=== PATIENT | female | born 1970 | race Caucasian/White ===

== ENCOUNTER → 2017-04-23 | Outpatient (CLI) | payer BC ==
--- NOTE | 2017-04-24 11:53 | MM ---
Reason for exam: screening (asymptomatic). Last mammogram was performed 1 year and 1 month ago. History: Took hormonal contraceptives for 10 years. Physical Findings: A clinical breast exam by your physician is recommended on an annual basis and results should be correlated with mammographic findings. MG Screening Mammo w CAD Bilateral CC and MLO view(s) were taken. Prior study comparison: March 19, 2016, bilateral MG 3d screening mammo w/cad. December 22, 2014, bilateral MG screening mammo w CAD. The breast tissue is heterogeneously dense. This may lower the sensitivity of mammography. There is no discrete abnormality. ASSESSMENT: Negative, BI-RAD 1 RECOMMENDATION: Routine screening mammogram of both breasts in 1 year.
== END | disposition home or self-care (01) ==
LOC: RADMAMWWP 07:23
PROVIDERS: ATTEND Obstetrics & Gynecology
DX: Z12.31 Encounter for screening mammogram for malignant neoplasm of breast (principal)

== ENCOUNTER → 2017-05-01 | Outpatient (CLI) | payer BC ==
--- NOTE | 2017-05-01 14:08 | USB ---
Reason for exam: clinical finding. History: Took hormonal contraceptives for 10 years. Indicated problem(s): pain in the left breast. Physical Findings: Nurse Summary: patient has pain that radiates to 2 o'clock on breast, no lump palpated, bilateral soft/movable (nurse cw). US Breast LT Left breast ultrasound includes all four quadrants, the retroareolar region and axilla. Finding demonstrates a 0.4 x 0.6 x 0.3cm oval, hyperechoic lesion at 7 o'clock, lipoma versus dense tissue. These results were verbally communicated with the patient and result sheet given to the patient on 05/01/17. ASSESSMENT: Benign, BI-RAD 2 RECOMMENDATION: Return to routine screening mammogram schedule for both breasts. Manage patient on a clinical basis.
== END | disposition home or self-care (01) ==
LOC: RADUSWWP 13:00
PROVIDERS: ATTEND Family Medicine
DX: N64.4 Mastodynia (principal)

== ENCOUNTER → 2017-09-28 | Outpatient (CLI) | payer BC ==
[2017-09-28 17:35] LABS: T4, Free (Free Thyroxine) 0.97 ng/dL (0.78-2.19)
== END | disposition home or self-care (01) ==
LOC: LABWHC1 16:36
PROVIDERS: ATTEND Family Medicine
DX: L65.9 Nonscarring hair loss, unspecified (principal); R53.83 Other fatigue
CPT/HCPCS: 36415; 82306; 84439; 84443; 84481

== ENCOUNTER → 2017-11-04 | Outpatient (CLI) | payer BC ==
--- NOTE | 2017-11-04 14:35 | CONS ---
CONSULTATION DATE OF SERVICE: 11/04/2017 47-year-old lady has been evaluated in Sleep Center for significant excessive daytime sleepiness. [place] Sleepiness Scale increased to 20. HISTORY OF PRESENT ILLNESS SLEEP WAKE EVALUATION: Patient referred to be a long sleeper for all her life. SLEEP SCHEDULE: At the present time, she sleeps usually from around 10:00 p.m. until 6 am at night. 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 DURING SLEEP: She does not have history of snoring. During the night, she constantly move from 1 side to another site. She preferred to sleep on the side not on the back. According to her , she is rubbing her feet during the night. No history of nocturia. DURING THE DAY/SLEEP WAKE EVALUATION: No history of hypnagogic hallucinations, sleep paralysis or cataplexy. During the naps, patient sometimes seeing dreams. Sometimes it could be vivid dreams but usually no new dreaming during the night sleep. PAST MEDICAL HISTORY: Positive for iron deficiency anemia in the past secondary to uterus bleeding, iron improved normalized according to patient after uterus ablation, it was about 5 years ago. PAST SURGICAL HISTORY: Uterus ablation about 5 years ago for bleeding. MEDICATION: , Modafinil, presently patient is on 200 mg of modafinil a day in the morning. With this regimen, she does not take naps in the middle of the day, but still feels very tired. SOCIAL HISTORY: Negative for smoking. Alcohol consumption occasional. FAMILY HISTORY: Basically negative. Her parents are healthy. REVIEW OF SYSTEMS: Excessive daytime sleepiness, multiple movements and driving fits during the day at night. PHYSICAL EXAM: A lady without distress, BP 112/71, HR 70, RR 16, height 5 feet 6 and one half inches and weight 156.8, BMI 24.8, temperature 98.1. Oxygen saturation room air 99%. Oropharynx: Moderately low to extremely low position of soft palate. Small nasal passages, but practically normal nasal breathing. Neck: Supple, no JVD. Thyroid is not palpable. LUNGS Clear to percussion and to auscultation. Good air exchange. No wheezing or rhonchi. HEART: S1, S2 regular. No murmurs, gallops, or rubs. ABDOMEN: Soft and nontender. Bowel sounds are present. No organomegaly appreciated. EXTREMITIES No clubbing or cyanosis. 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 Cranial nerves 2 to 7 intact. There is no fasciculation or atrophy. noted. No focal deficits observed. IMPRESSION: 1. History of rubbing feet according to patient's at night. Multiple movements during the night from one side to another side. Periodic limb movements. 2. Significant excessive daytime sleepiness. [place] Sleepiness Scale increased to 20. Differential diagnosis includes idiopathic hypersomnia and narcolepsy, absence of cataplexy, sleep paralysis and hypnagogical hallucinations probably against narcolepsy, but again in differential, the main possibility may include idiopathic hypersomnia. 3. Low position of soft palate. Obstructive sleep apnea needs to be ruled out. 4. History of uterus bleeding in the past with iron deficiency anemia in the past. Iron deficiency may increase risk for periodic limb movements. 5. Status post uterus ablation about 5 years ago. PLAN: 1. Polysomnography for evaluation of patient's breathing during sleep. 2. CPAP/BiPAP titration if sleep study confirms obstructive sleep apnea-hypopnea syndrome. 3. Preferable position during sleep on the side. 4. No driving if patient feels any sleepiness. 5. I will see patient for follow up visit to explain results of testing and following plan. 6. Multiple sleep latency test if sleep study will be negative for physical abnormalities of sleep. Thank you very much for referring this patient for consultation. Sincerely, Rob Canchola MD, PhD, FAASM Diplomat of [place] [employer] [place] [employer] Repossession Agent of [facility] [place] MMODL / [place]: [id number] /
== END | disposition home or self-care (01) ==
LOC: SLEEP 10:36
PROVIDERS: ATTEND Internal Medicine Critical Care Medicine
DX: G47.9 Sleep disorder, unspecified (principal); G47.61 Periodic limb movement disorder; N93.9 Abnormal uterine and vaginal bleeding, unspecified; D50.9 Iron deficiency anemia, unspecified; Z98.890 Other specified postprocedural states; Z99.89 Dependence on other enabling machines and devices; Z79.899 Other long term (current) drug therapy
CPT/HCPCS: 99211

== ENCOUNTER → 2018-01-07 | Outpatient (CLI) | payer BC ==
--- NOTE | 2018-01-07 19:32 | SFUN ---
SLEEP CENTER FOLLOW UP NOTE DATE OF SERVICE: 01/07/2018 47-year-old lady has been followed in Sleep Center to discuss results of sleep studies and following plan of the treatment. The patient had a polysomnogram done that did not show any significant respiratory abnormalities during the sleep. Total apnea-hypopnea index was 0 with normal oxygen saturation during the sleep. No significant periodic limb movements have been documented. Multiple sleep latency test done on the following day consisted of 5 naps. Mean sleep latency is 5.3 minutes, which is short and definitely indicated pathological sleepiness. No sleep onset REM periods have been documented. Presently, patient is on treatment with modafinil 200 mg in the morning. In this treatment, she feels better but she still feels sleepy sometimes usually in the middle of the day or afternoon. Jackson Sleepiness Scale today is 19. MEDICATIONS: Modafinil, , biotin, vitamin D. PHYSICAL EXAM: GENERAL Patient in no distress. VITAL SIGNS BP 115/74, HR 66, temperature 98.9, RR 14, oxygen saturation on room air 100%. Weight 155.8. HEENT PERRLA, EOMI, evaluation of oropharynx showed tongue protrudes midline. NECK Supple, no JVD. Thyroid is not palpable. LUNGS Clear to percussion and to auscultation. Good air exchange. No wheezing or rhonchi. HEART S1, S2 regular. No murmurs, gallops, or rubs. ABDOMEN Soft and nontender. Bowel sounds are present. No organomegaly appreciated. EXTREMITIES No clubbing or cyanosis. 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 Cranial nerves 2 to 7 intact. There is no fasciculation or atrophy. noted. No focal deficits observed. IMPRESSION: 1. No significant respiratory abnormalities during the sleep study. 2. No periodic limb movements have been documented. 3. Multiple sleep latency test confirmed pathological sleepiness. Differential diagnosis includes narcolepsy and idiopathic hypersomnia. Sometimes patient sleeps for more than 12 hours a day. 4. History of iron deficiency anemia in the past. 5. Status post uterine ablation about 5 years ago for bleeding. PLAN: 1. Dose of modafinil will be slowly adjusted up to prevent symptoms of excessive daytime sleepiness, not to exceed 400 mg in the morning, which is FDA improved dose. I believe that the patient will need about 300 mg of modafinil in the morning to prevent her symptoms of sleepiness. 2. Sleep hygiene with regular time in bed for at least 8 hours. 3. Daytime naps permitted. 4. No driving if feeling sleepiness. 5. HLA profile for narcolepsy. Thank you very much for allowing me to participate in management of your patient. Sincerely, Rob Canchola MD, PhD, FAASM Diplomat of [place] [employer] [employer] Batch Unit Treater of [facility] [place] [email or web address] / [place]: [id number] /
== END | disposition home or self-care (01) ==
LOC: SLEEP 16:12
PROVIDERS: ATTEND Internal Medicine
DX: G47.8 Other sleep disorders (principal); D50.9 Iron deficiency anemia, unspecified; Z98.890 Other specified postprocedural states

== ENCOUNTER → 2018-02-04 | Outpatient (CLI) | payer BC ==
[2018-02-04 19:06] LABS: T4, Free (Free Thyroxine) 1.25 ng/dL (0.78-2.19)
== END | disposition home or self-care (01) ==
LOC: LABWHC1 16:52
PROVIDERS: ATTEND Family Medicine
DX: E03.8 Other specified hypothyroidism (principal)
CPT/HCPCS: 36415; 84439; 84443

== ENCOUNTER 2018-03-30 13:49 | Emergency (ER) | payer BC, OTHER ==
[2018-03-30 13:55] VITALS: RESP 18; TEMP 98.1
--- NOTE | 2018-03-30 15:04 | CT ---
EXAMINATION TYPE: CT brain martin gunderson DATE OF EXAM: 03/30/2018 COMPARISON: None HISTORY: fall today with head injury. Possible LOC CT DLP: [address] Brain: Unenhanced CT of the brain was performed. The ventricles, basal cisterns and sulci overlying the cerebral convexities demonstrate a normal appe arance. There is no evidence for intracranial hemorrhage or sulcal effacement. No mass effects are seen. If symptoms persist consider MRI. Osseous calvarium is intact. IMPRESSION: No acute intracranial process CT Cervical Spine: Unenhanced CT of the cervical spine was performed with bone and soft tissue window settings submitted . Coronal and sagittal reconstruction is obtained. There is normal alignment and prevertebral soft tissues. I do not see evidence for fracture or sublu xation. No significant degenerative changes are present. The lung apices are clear. IMPRESSION: No evidence for acute fracture or subluxation of the cervical spine.
--- NOTE | 2018-03-30 15:33 | ED ---
General Adult HPI - General Chief complaint: Fall Stated complaint: [facility] Fell hit head Time Seen by Provider: 03/30/18 14:05 Source: patient, RN notes reviewed Mode of arrival: ambulatory Limitations: no limitations - History of Present Illness Initial comments: 47-year-old female presents to the emergency department for a chief complaint of fall occurring about 2 hours prior to arrival. 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 She states she fell hitting the back of her head against a desk and then against the floor. Patient denies loss of consciousness. She denies being on blood thinners. She does admit to a headache at this time. Patient states she took 800 mg of Motrin prior to arrival. Patient denies any neck pain. She denies any back pain. She denies any other injuries. She does admit to having initial pain in her right wrist that has since completely resolved.Patient has no other complaints at this time including shortness of breath, chest pain, abdominal pain, nausea or vomiting, or visual changes. - Related Data Allergies Allergy/AdvReac Type Severity Reaction Status Date / Time No Known Allergies Allergy Verified 03/30/18 13:55 Review of Systems ROS Statement: Those systems with pertinent positive or pertinent negative responses have been documented in the HPI. ROS Other: All systems not noted in ROS Statement are negative. Past Medical History Past Medical History: Thyroid Disorder Additional Past Medical History / Comment(s): narcolepsys History of Any Multi-Drug Resistant Organisms: None Reported Past Surgical History: No Surgical Hx Reported Past Psychological History: No Psychological Hx Reported Smoking Status: Never smoker Past Alcohol Use History: Occasional Past Drug Use History: None Reported General Exam Limitations: no limitations General appearance: alert, in no apparent distress Head exam: Present: atraumatic (No evidence of overt trauma, no hematomas, lacerations, ecchymosis), normocephalic, normal inspection Eye exam: Present: normal appearance, PERRL, EOMI. Absent: scleral icterus, conjunctival injection, periorbital swelling ENT exam: Present: normal exam, normal oropharynx, mucous membranes moist, TM's normal bilaterally (Negative hemotympanum), normal external ear exam Neck exam: Present: normal inspection, full ROM. Absent: tenderness, meningismus, lymphadenopathy Respiratory exam: Present: normal lung sounds bilaterally. Absent: respiratory distress, wheezes, rales, rhonchi, stridor Cardiovascular Exam: Present: regular rate, normal rhythm, normal heart sounds. Absent: systolic murmur, diastolic murmur, rubs, gallop, clicks Neurological exam: Present: alert, oriented X3, CN II-XII intact, normal gait Expanded Patient oriented to: Present: person, place, time Speech: Present: fluid speech Cranial nerves: EOM's Intact: Normal, Tongue Deviation: Normal, Nystagmus: Normal, Facial Sensation: Normal Cerebellar function: Finger to Nose: Normal Upper motor neuron: Pronator Drift: Normal Sensory exam: Upper Extremity Light Touch: Normal, Upper Extremity Pin Prick: Normal, Lower Extremity Light Touch: Normal, Lower Extremity Pin Prick: Normal Motor strength exam: RUE: 5, LUE: 5, RLE: 5, LLE: 5 Eye Response: (4) open spontaneously Motor Response: (6) obeys commands Verbal Response: (5) oriented [place] Total: 15 Psychiatric exam: Present: normal affect, normal mood Course Vital Signs 03/30/18 03/30/18 13:52 15:55 Temperature 98.1 F Pulse Rate 72 68 Respiratory 18 18 Rate Blood Pressure 113/69 133/71 O2 Sat by Pulse 99 100 Oximetry Medical Decision Making - Medical Decision Making 47-year-old female presents to the emergency department for a chief complaint of fall occurring about 2 hours prior to arrival. Patient admits to hitting her head. She has a headache at this time, denies neck pain. Full range of motion of the neck, no midline tenderness. No tenderness of the thoracic or lumbar spines as well. No focal neuro deficits. No hematomas or evidence of overt trauma. CT brain shows no acute intracranial process. CT C-spine shows no evidence for acute fracture or subluxation. At this time patient was given Tylenol as well and she is still having a headache. Discussed concussion precautions with the patient. Discussed following up with primary care and returning if patient has any worsening symptoms. Disposition Clinical Impression: Head injury Disposition: HOME SELF-CARE Condition: Good Instructions: Concussion (ED) Additional Instructions: Please take Motrin and Tylenol for pain. Please follow-up with primary care in 1-2 days. Please return to the emergency department if you have any worsening symptoms. Is patient prescribed a controlled substance at d/c from ED?: No Referrals: Mamadou Dowell DO [Primary Care Provider] - 1-2 days Time of Disposition: 16:01
[2018-03-30 15:56] VITALS: BP 133/71; PULSE 68
[2018-03-30] MEDS ORDERED: ACETAMINOPHEN TAB 500 MG TAB PO STA (16:08)
== END 2018-03-30 16:16 | disposition home or self-care (01) ==
LOC: EC 13:49
DX: S09.90XA Unspecified injury of head, initial encounter (principal); R40.2142 Coma scale, eyes open, spontaneous, at arrival to emergency department; R40.2252 Coma scale, best verbal response, oriented, at arrival to emergency department; R40.2362 Coma scale, best motor response, obeys commands, at arrival to emergency department; W01.190A Fall on same level from slipping, tripping and stumbling with subsequent striking against furniture, initial encounter; Y92.69 Other specified industrial and construction area as the place of occurrence of the external cause; Y99.0 Civilian activity done for income or pay
CPT/HCPCS: 70450; 72125; 99283

== ENCOUNTER → 2018-07-28 | Outpatient (CLI) | payer BC ==
--- NOTE | 2018-07-28 22:56 | MR ---
MRI CERVICAL SPINE: CLINICAL HISTORY: Cervical region radiculopathy per order. Headache with Neck pain with right arm per patient for 7 months. TECHNIQUE: Multiplanar, multisequence imaging of the cervical spine is performed without IV contrast. COMPARISON: CT cervical spine March 30, 2018. FINDINGS: Sagittal images of the cervical spine show the craniocervical junction to remain within nor mal limits. The cervical and upper thoracic spinal cord is normal in course, caliber, and signal. Th ere is grade 1 retrolisthesis of C4 on C5 and C5 on C6. The vertebral body heights are normal. Ther e is mild disc space narrowing C4-C5 level level redemonstrated. Posterior disc herniations are effac ing the anterior thecal sac at C4-C5 and C5-C6 levels on sagittal images. The bone marrow signal inte nsity is within normal limits. No significant spurring is seen. Axial images show the C2-C3 and C3-C4 levels to appear within normal limits. Axial images at the C4-C5 level showed broad based central disc protrusion effacing the anterior thec al sac, bilateral neural foramina are mildly narrowed. Axial images at the C5-C6 level shows central disc protrusion mildly effacing the anterior thecal sac , bilateral neural foramina are patent. Axial images at the C6-C7 and C7-T1 levels are felt to within normal limits. IMPRESSION: Some spondylolisthesis and degenerative changes in the mid cervical spine most prominent C4-C5 level as detailed above.
== END | disposition home or self-care (01) ==
LOC: RADMRIMAIN 17:16
PROVIDERS: ATTEND Family Medicine
DX: M43.12 Spondylolisthesis, cervical region (principal); M47.22 Other spondylosis with radiculopathy, cervical region
CPT/HCPCS: 72141

== ENCOUNTER → 2018-10-06 | Outpatient (CLI) | payer BC ==
--- NOTE | 2018-10-07 11:01 | MM ---
Reason for exam: screening (asymptomatic). Last mammogram was performed 1 year and 5 months ago. History: Took hormonal contraceptives for 10 years. Physical Findings: A clinical breast exam by your physician is recommended on an annual basis and results should be correlated with mammographic findings. MG 3D Screening Mammo W/Cad Bilateral CC and MLO view(s) were taken. Prior study comparison: April 23, 2017, bilateral MG screening mammo w CAD. March 19, 2016, bilateral MG 3d screening mammo w/cad. The breast tissue is heterogeneously dense. This may lower the sensitivity of mammography. There is no discrete abnormality. ASSESSMENT: Negative, BI-RAD 1 RECOMMENDATION: Routine screening mammogram of both breasts in 1 year.
== END | disposition home or self-care (01) ==
LOC: RADMAMWWP 10:58
PROVIDERS: ATTEND Obstetrics & Gynecology
DX: Z12.31 Encounter for screening mammogram for malignant neoplasm of breast (principal)
CPT/HCPCS: 77063; 77067

== ENCOUNTER → 2019-06-24 | Outpatient (CLI) | payer BC ==
--- NOTE | 2019-06-24 17:42 | MR ---
EXAMINATION TYPE: MR brain wo/w con DATE OF EXAM: 06/24/2019 COMPARISON: CT brain March 30, 2018 HISTORY: Headache TECHNIQUE: Multiplanar, multisequence images of the brain and brainstem is performed without and with IV contras t, utilizing 7.5 mL intravenous Gadavist . FINDINGS: Diffusion weighted images demonstrate no evidence of a recent infarct or other diffusion ab normality. There is no worrisome extra-axial fluid collection. The ventricular system and cisternal spaces are normal in size and appearance. The brain volume is age appropriate. Some scattered foci of T2 hyperintensity are present throughout the white matter bilaterally. Approximately 15-20 scatter ed small lesions are seen. For reference 6 mm left paracentral frontal lesion axial image 22. Midline structures demonstrate normal morphology. The craniocervical junction appears within normal limits. Post contrast images demonstrate no abnormal enhancement. The dural venous sinuses appear pa tent. Moderate mucosal thickening with air-fluid level left maxillary sinus. [id number]-[id number] mucosal thickening about the anterior left ethmoid sinuses. Globes are intact bilaterally. IMPRESSION: Mild to borderline moderate nonspecific white matter changes may be on basis of altered v ascular mechanics related to product of migraine headaches. Acute left maxillary sinusitis on backgro und chronic left maxillary and ethmoid sinus disease.
== END | disposition home or self-care (01) ==
LOC: RADMRIMAIN 16:39
PROVIDERS: ATTEND Family Medicine
DX: R90.82 White matter disease, unspecified (principal)
CPT/HCPCS: 70553; A9585

== ENCOUNTER → 2020-07-06 | Outpatient (CLI) | payer BC ==
--- NOTE | 2020-07-10 08:26 | MM ---
Reason for exam: screening (asymptomatic). Last mammogram was performed 1 year and 9 months ago. History: Took hormonal contraceptives for 10 years. Physical Findings: A clinical breast exam by your physician is recommended on an annual basis and results should be correlated with mammographic findings. MG 3D Screening Mammo W/Cad Bilateral CC and MLO view(s) were taken. Prior study comparison: October 06, 2018, bilateral MG 3d screening mammo w/cad. April 23, 2017, bilateral MG screening mammo w CAD. The breast tissue is heterogeneously dense. This may lower the sensitivity of mammography. There is chronic nodularity bilaterally. No significant changes when compared with prior studies. ASSESSMENT: Benign, BI-RAD 2 RECOMMENDATION: Routine screening mammogram of both breasts in 1 year.
== END | disposition home or self-care (01) ==
LOC: RADMAMWWP 16:53
PROVIDERS: ATTEND Obstetrics & Gynecology
DX: Z12.31 Encounter for screening mammogram for malignant neoplasm of breast (principal)
CPT/HCPCS: 77063; 77067

== ENCOUNTER → 2021-04-02 | Outpatient (CLI) | payer BC ==
[2021-04-02 12:37] LABS: Cancer Antigen 125 23.4 U/mL (0.0-30.1); Estradiol 87.9 pg/mL
[2021-04-02 14:08] LABS: Luteinizing Hormone 6.2 mIU/mL
== END | disposition home or self-care (01) ==
LOC: LABWHC1 07:02
PROVIDERS: ATTEND Obstetrics & Gynecology
DX: N83.209 Unspecified ovarian cyst, unspecified side (principal)
CPT/HCPCS: 36415; 82670; 83001; 83002; 86304

== ENCOUNTER → 2021-04-03 | Outpatient (CLI) | payer BC ==
--- NOTE | 2021-04-04 10:34 | CT ---
EXAMINATION TYPE: CT iac wo con DATE OF EXAM: 04/03/2021 COMPARISON: None HISTORY: right side hearing loss CT DLP: 211mGycm Automated exposure control for dose reduction was used. FINDINGS: The external auditory canals are patent bilaterally. Mastoid air cells show no evidence of abnormal opacification bilaterally. The middle ear ossicles are symmetric and unremarkable. There is no evidence of suspicious surrounding soft tissue density to suggest cholesteatoma. The scutum is preserved bilaterally. The cochlea and the semicircular canals are symmetric and unremarkable. Ves tibular aqueduct and internal carotid canal appear unremarkable. Temporomandibular joints are mainta ined bilaterally. Air-fluid levels present in the right maxillary sinus, there is some associated lo bular soft tissue, ethmoid air cells also show some mucosal disease. Ostiomeatal unit on the right is obstructed with soft tissue, patent ostiomeatal unit on the left. Petrous apex on the right shows so me inflammatory change, only partially pneumatized. Axial images were not performed using bone algorithm, will be performed at no additional charge the p atient should it be requested. IMPRESSION: There may be underlying petrous apicitis, inflammatory changes are present consistent wit h sinus disease, correlate for acute right maxillary sinusitis
== END | disposition home or self-care (01) ==
LOC: RADCTMAIN 17:03
PROVIDERS: ATTEND Otolaryngology
DX: H74.91 Unspecified disorder of right middle ear and mastoid (principal)
CPT/HCPCS: 70480

== ENCOUNTER → 2021-04-23 | Outpatient (CLI) | payer BC ==
[2021-04-23 13:58] LABS: Basophils % (A) 1 %; Eosinophils # (A) 0.1 k/uL (0-0.7); Eosinophils % (A) 3 %; HCT 42.6 % (34.0-46.0); HGB 14.2 gm/dL (11.4-16.0); Lymphocytes # (A) 1.2 k/uL (1.0-4.8); Lymphocytes % (A) 28 %; MCH 31.1 pg (25.0-35.0); MCHC 33.5 g/dL (31.0-37.0); MCV 92.9 fL (80.0-100.0); Monocytes # (A) 0.2 k/uL (0-1.0); Monocytes % (A) 5 %; Neutrophils # (A) 2.7 k/uL (1.3-7.7); Neutrophils % (A) 62 %; Platelet Count 248 k/uL (150-450); RBC 4.58 m/uL (3.80-5.40); RDW 11.8 % (11.5-15.5); WBC 4.4 k/uL (3.8-10.6)
[2021-04-23 14:11] LABS: African American GFR (CKD) >90 (>60 ml/min/1.73 sqM); Anion Gap 3 mmol/L; Blood Urea Nitrogen 14 mg/dL (7-17); Calcium 9.2 mg/dL (8.4-10.2); Carbon Dioxide 32 mmol/L (22-30); Chloride 104 mmol/L (98-107); Glucose 89 mg/dL (74-99); Non-African American GFR(CKD) >90 (>60 ml/min/1.73 sqM); Potassium 4.2 mmol/L (3.5-5.1); Sodium 139 mmol/L (137-145)
== END | disposition home or self-care (01) ==
LOC: LABPAT 12:32
PROVIDERS: ATTEND Obstetrics & Gynecology
DX: Z01.812 Encounter for preprocedural laboratory examination (principal)
CPT/HCPCS: 36415; 80048; 85025

== ENCOUNTER → 2021-08-05 | Outpatient (CLI) | payer BC ==
--- NOTE | 2021-08-06 08:16 | USB ---
Reason for exam: additional evaluation requested from abnormal screening. History: Patient is postmenopausal. Family history of breast cancer in 2 maternal aunts. Took hormonal contraceptives for 10 years. Physical Findings: A clinical breast exam by your physician is recommended on an annual basis and results should be correlated with mammographic findings. US Breast Workup LT Technologist: Blanca Acuna Left complete breast ultrasound includes all four quadrants, the retroareolar region and axilla. Finding demonstrates no cystic or solid lesion seen. Results were given to the patient verbally at the time of the exam. ASSESSMENT: Probably benign, BI-RAD 3 RECOMMENDATION: Follow-up diagnostic mammogram of the left breast in 6 months.
== END | disposition home or self-care (01) ==
LOC: RADUSWWP 15:06
PROVIDERS: ATTEND Obstetrics & Gynecology
DX: R92.8 Other abnormal and inconclusive findings on diagnostic imaging of breast (principal); Z78.0 Asymptomatic menopausal state; Z80.3 Family history of malignant neoplasm of breast

== ENCOUNTER → 2021-11-14 | Outpatient (CLI) | payer BC ==
[2021-11-15 00:38] LABS: Anion Gap 14.3 mmol/L (10.00-18.00); BUN/Creat Ratio 20.69 Ratio (12.00-20.00); Calcium 9.5 mg/dL (8.7-10.3); Carbon Dioxide 27.1 mmol/L (20.0-27.5); Non-African American GFR(CKD) 55.2 (60.0-200.0); Potassium 3.7 mmol/L (3.5-5.5)
== END | disposition home or self-care (01) ==
LOC: LABWHC1 15:08
PROVIDERS: ATTEND Otolaryngology
DX: Z00.00 Encounter for general adult medical examination without abnormal findings (principal)
CPT/HCPCS: 36415; 80048

== ENCOUNTER → 2022-02-12 | Outpatient (CLI) | payer BC ==
--- NOTE | 2022-02-12 07:32 | MM ---
Reason for Exam: Follow-up at short interval from prior study. Last screening mammogram was performed 6 month(s) ago. Patient History: Menarche at age 19. First Full-Term at age 28. Left ovary removed at age 51. Right ovary removed at age 51. Hysterectomy at age 51. Postmenopausal. Patient has history of breast feeding. Patient used Hormonal Contraceptives for 10 years. Maternal aunt had breast cancer. Maternal aunt had breast cancer. Risk Values: Edna 5 year model risk: 0.9%. NCI Lifetime model risk: 9.2%. Prior Study Comparison: 03/19/2016 Bilateral Screening Mammogram, [facility]. 04/23/2017 Bilateral Screening Mammogram, [facility]. 10/06/2018 Bilateral Screening Mammogram, [facility]. 07/06/2020 Bilateral Screening Mammogram, [facility]. 07/31/2021 Bilateral Screening Mammogram, [facility]. Tissue Density: Left: There are scattered fibroglandular densities. Findings: Analyzed By CAD. Stable nodularity within the central left breast on CC view. New 5 mm nodule with equal density and circumscribed margin in the central posterior left breast on CC view. No worrisome cluster of microcalcifications within the left breast. Overall Assessment: Incomplete: need additional imaging evaluation, BI-RAD 0 Management: Diagnostic Breast Ultrasound of the left breast. A clinical breast exam by your physician is recommended on an annual basis and results should be correlated with mammographic findings. This exam should not preclude additional follow-up of suspicious palpable abnormalities. Results were given to the patient verbally at the time of exam. Electronically signed and approved by: Ramirez Pastor D.O.
--- NOTE | 2022-02-12 07:32 | MM ---
Reason for Exam: Follow-up at short interval from prior study. Last screening mammogram was performed 6 month(s) ago. Patient History: Menarche at age 19. First Full-Term at age 28. Left ovary removed at age 51. Right ovary removed at age 51. Hysterectomy at age 51. Postmenopausal. Patient has history of breast feeding. Patient used Hormonal Contraceptives for 10 years. Maternal aunt had breast cancer. Maternal aunt had breast cancer. Risk Values: Edna 5 year model risk: 0.9%. NCI Lifetime model risk: 9.2%. Prior Study Comparison: 03/19/2016 Bilateral Screening Mammogram, [facility]. 04/23/2017 Bilateral Screening Mammogram, [facility]. 10/06/2018 Bilateral Screening Mammogram, [facility]. 07/06/2020 Bilateral Screening Mammogram, [facility]. 07/31/2021 Bilateral Screening Mammogram, [facility]. Tissue Density: Left: There are scattered fibroglandular densities. Findings: Analyzed By CAD. Stable nodularity within the central left breast on CC view. New 5 mm nodule with equal density and circumscribed margin in the central posterior left breast on CC view. No worrisome cluster of microcalcifications within the left breast. Overall Assessment: Incomplete: need additional imaging evaluation, BI-RAD 0 Management: Diagnostic Breast Ultrasound of the left breast. A clinical breast exam by your physician is recommended on an annual basis and results should be correlated with mammographic findings. This exam should not preclude additional follow-up of suspicious palpable abnormalities. Results were given to the patient verbally at the time of exam. Electronically signed and approved by: Ramirez Pastor D.O.
--- NOTE | 2022-02-12 07:55 | USB ---
Reason for Exam: Follow-up at short interval from prior study. Patient History: Menarche at age 19. First Full-Term at age 28. Left ovary removed at age 51. Right ovary removed at age 51. Hysterectomy at age 51. Postmenopausal. Patient has history of breast feeding. Patient used Hormonal Contraceptives for 10 years. Maternal aunt had breast cancer. Maternal aunt had breast cancer. Risk Values: Edna 5 year model risk: 0.9%. NCI Lifetime model risk: 9.2%. Technique: Method: Targeted. Prior Study Comparison: 10/06/2018 Bilateral Screening Mammogram, [facility]. 07/06/2020 Bilateral Screening Mammogram, [facility]. 07/31/2021 Bilateral Screening Mammogram, [facility]. Findings: The upper outer quadrant of the left breast, the axilla of the left breast and the retroareolar of the left breast were scanned. Limited left breast ultrasound was performed from 12:00 to 3:00 with additional evaluation of the nipple and axillary tail. No solid or cystic masses identified. Overall Assessment: Probably benign, BI-RAD 3 Management: Diagnostic Mammogram of both breasts in 6 months. A clinical breast exam by your physician is recommended on an annual basis and results should be correlated with mammographic findings. This exam should not preclude additional follow-up of suspicious palpable abnormalities. ??Results were given to the patient verbally at the time of exam. Electronically signed and approved by: Ramirez Pastor D.O.
--- NOTE | 2022-02-12 07:55 | USB ---
Reason for Exam: Follow-up at short interval from prior study. Patient History: Menarche at age 19. First Full-Term at age 28. Left ovary removed at age 51. Right ovary removed at age 51. Hysterectomy at age 51. Postmenopausal. Patient has history of breast feeding. Patient used Hormonal Contraceptives for 10 years. Maternal aunt had breast cancer. Maternal aunt had breast cancer. Risk Values: Edna 5 year model risk: 0.9%. NCI Lifetime model risk: 9.2%. Technique: Method: Targeted. Prior Study Comparison: 10/06/2018 Bilateral Screening Mammogram, [facility]. 07/06/2020 Bilateral Screening Mammogram, [facility]. 07/31/2021 Bilateral Screening Mammogram, [facility]. Findings: The upper outer quadrant of the left breast, the axilla of the left breast and the retroareolar of the left breast were scanned. Limited left breast ultrasound was performed from 12:00 to 3:00 with additional evaluation of the nipple and axillary tail. No solid or cystic masses identified. Overall Assessment: Probably benign, BI-RAD 3 Management: Diagnostic Mammogram of both breasts in 6 months. A clinical breast exam by your physician is recommended on an annual basis and results should be correlated with mammographic findings. This exam should not preclude additional follow-up of suspicious palpable abnormalities. ??Results were given to the patient verbally at the time of exam. Electronically signed and approved by: Ramirez Pastor D.O.
== END | disposition home or self-care (01) ==
LOC: RADMAMWWP 06:54
PROVIDERS: ATTEND Obstetrics & Gynecology
DX: R92.8 Other abnormal and inconclusive findings on diagnostic imaging of breast (principal); Z78.0 Asymptomatic menopausal state; Z80.3 Family history of malignant neoplasm of breast
CPT/HCPCS: 77061; 77065

== ENCOUNTER → 2022-08-14 | Outpatient (CLI) | payer BC ==
--- NOTE | 2022-08-14 15:04 | MM ---
Reason for Exam: Follow-up at short interval from prior study. Last screening mammogram was performed 12 month(s) ago. Patient History: Menarche at age 19. First Full-Term at age 28. Left ovary removed at age 51. Right ovary removed at age 51. Hysterectomy at age 51. Postmenopausal. Patient has history of breast feeding. Patient used Hormonal Contraceptives for 10 years. Maternal aunt had breast cancer. Maternal aunt had breast cancer. Risk Values: Edna 5 year model risk: 1.0%. NCI Lifetime model risk: 9.1%. Prior Study Comparison: 03/19/2016 Bilateral Screening Mammogram, [facility]. 04/23/2017 Bilateral Screening Mammogram, [facility]. 05/01/2017 Left Diagnostic Ultrasound, [facility]. 10/06/2018 Bilateral Screening Mammogram, [facility]. 07/06/2020 Bilateral Screening Mammogram, [facility]. 07/31/2021 Bilateral Screening Mammogram, [facility]. 08/05/2021 Left Diagnostic Ultrasound, [facility]. 02/12/2022 Left US breast limited LT, [facility]. 02/12/2022 Left MG 3D diag mammo w/cad LT, [facility]. Tissue Density: There are scattered fibroglandular densities. Findings: Analyzed By CAD. There are 2 stable round focal asymmetries within the left breast at 6-7 o'clock at middle to posterior depth. No new masses or suspicious calcifications are identified. No architectural distortion. Overall Assessment: Incomplete: need additional imaging evaluation, BI-RAD 0 Management: Diagnostic Breast Ultrasound of the left breast. A clinical breast exam by your physician is recommended on an annual basis and results should be correlated with mammographic findings. This exam should not preclude additional follow-up of suspicious palpable abnormalities. Results were given to the patient verbally at the time of exam. Electronically signed and approved by: Ramirez Pastor D.O.
--- NOTE | 2022-08-14 15:48 | USB ---
Reason for Exam: Follow-up at short interval from prior study. Patient History: Menarche at age 19. First Full-Term at age 28. Left ovary removed at age 51. Right ovary removed at age 51. Hysterectomy at age 51. Postmenopausal. Patient has history of breast feeding. Patient used Hormonal Contraceptives for 10 years. Maternal aunt had breast cancer. Maternal aunt had breast cancer. Risk Values: Edna 5 year model risk: 1.0%. NCI Lifetime model risk: 9.1%. Technique: Method: Targeted. Prior Study Comparison: 07/06/2020 Bilateral Screening Mammogram, [facility]. 07/31/2021 Bilateral Screening Mammogram, [facility]. 02/12/2022 Left MG 3D diag mammo w/cad LT, [facility]. Findings: The lower inner quadrant of the left breast, the axilla of the left breast and the retroareolar of the left breast were scanned. Targeted ultrasound of the left breast from 6-9 o'clock with additional evaluation of the nipple and axilla was performed. No solid or cystic lesion was identified again. Focal asymmetries of the left breast are stable from prior exams. Overall Assessment: Benign, BI-RAD 2 Management: Screening Mammogram of both breasts in 1 year. A clinical breast exam by your physician is recommended on an annual basis and results should be correlated with mammographic findings. This exam should not preclude additional follow-up of suspicious palpable abnormalities. Results were given to the patient verbally at the time of exam. Electronically signed and approved by: Ramirez Pastor D.O.
== END | disposition home or self-care (01) ==
LOC: RADMAMWWP 14:37
PROVIDERS: ATTEND Obstetrics & Gynecology
DX: R92.8 Other abnormal and inconclusive findings on diagnostic imaging of breast (principal); Z78.0 Asymptomatic menopausal state; Z80.3 Family history of malignant neoplasm of breast
CPT/HCPCS: 77062; 77066

== ENCOUNTER 2022-10-10 14:25 | Day surgery (SDC) | payer BC ==
[2022-10-08 14:40] VITALS: BMI 27.6
[~2022-10-10 14:25] MED LIST: LACTATED RINGERS 1,000 ML IV SCH
[2022-10-10 15:18] VITALS: RESP 16; TEMP 97
[2022-10-10] MEDS ORDERED: PROPOFOL 10 MG/ML 20 ML VIAL IV ONE (16:39)
--- NOTE | 2022-10-10 16:54 | P.PCN ---
Date of Procedure: 10/10/22 Procedure(s) Performed: BRIEF HISTORY: Patient is a 52-year-old pleasant white female scheduled for an elective colonoscopy as a part of evaluation of intermittent rectal bleeding. She has history of chronic constipation usually has BM every 3-7 days. PROCEDURE PERFORMED: Colonoscopy. PREOPERATIVE DIAGNOSIS: Intermittent rectal bleeding. IV sedation per Anesthesia. PROCEDURE: After informed consent was obtained, the patient, was brought into the endoscopy unit. IV sedation was administered by Anesthesia under continuous monitoring. Digital rectal examination was normal. Initially the Olympus CF-160 flexible video colonoscope was then inserted in the rectum, gradually advanced into the cecum without any difficulty. Careful examination was performed as the scope was gradually being withdrawn. Ileocecal valve and the appendiceal orifice were visualized and appeared normal. Prep was excellent. Mucosa of the cecum, ascending colon, transverse colon, descending colon, sigmoid colon, and rectum appeared normal. Retroflexion was performed in the rectum and no lesions were seen. The patient tolerated the procedure well. IMPRESSION: Normal-appearing colon from rectum to cecum with no evidence of colorectal neoplasia. RECOMMENDATIONS: Findings of this examination were discussed with the patient as well as a family. She was advised to be a high-fiber diet and take Supplements a regular basis. Recommend repeat screening colonoscopy in 10 years..
[2022-10-10 17:15] VITALS: BP 122/84; PULSE 66
== END 2022-10-10 17:34 | disposition home or self-care (01) ==
LOC: ORWHC2ENDO 14:25
PROVIDERS: ATTEND Internal Medicine Gastroenterology
DX: K62.5 Hemorrhage of anus and rectum (principal); E07.9 Disorder of thyroid, unspecified; G47.419 Narcolepsy without cataplexy; K64.9 Unspecified hemorrhoids; Z79.890 Hormone replacement therapy; Z79.899 Other long term (current) drug therapy; Z90.710 Acquired absence of both cervix and uterus; Z98.890 Other specified postprocedural states
CPT/HCPCS: 45378; J2704

== ENCOUNTER → 2023-08-01 | Outpatient (CLI) | payer BC ==
[2023-08-01 13:18] LABS: Basophils # (A) 0.03 X 10*3/uL (0.00-0.10); Basophils % (A) 0.7 %; Eosinophils # (A) 0.09 X 10*3/uL (0.04-0.35); Eosinophils % (A) 2.1 %; HCT 42.4 % (37.2-46.3); HGB 13.9 g/dL (12.0-15.0); Lymphocytes # (A) 1.15 X 10*3/uL (0.90-5.00); Lymphocytes % (A) 26.8 %; MCH 29.8 pg (27.0-32.0); MCHC 32.8 g/dL (32.0-37.0); Mean Platelet Volume 8.9 FL (9.5-12.2); Monocytes # (A) 0.31 X 10*3/uL (0.20-1.00); Monocytes % (A) 7.2 %; NRBC Per 100 WBC 0 X 10*3/uL (0.00-0.01); Platelet Count 254 X 10*3/uL (140-440); RBC 4.66 X 10*6/uL (4.10-5.20); RDW 12.9 % (11.5-14.5); WBC 4.29 X 10*3/uL (4.50-10.00)
[2023-08-01 13:42] LABS: ALT 124 U/L (8-44); AST 48 U/L (13-35); Albumin 4.3 g/dL (3.8-4.9); Albumin/Globulin Ratio 1.59 Ratio (1.60-3.17); Alkaline Phosphatase 103 U/L (41-126); BUN/Creat Ratio 19.75 Ratio (12.00-20.00); Blood Urea Nitrogen 15.8 mg/dL (9.0-27.0); Calcium 9.6 mg/dL (8.7-10.3); Carbon Dioxide 27.8 mmol/L (21.6-31.8); Chloride 104 mmol/L (96-109); Chol/HDL Ratio 3.41 Ratio; Globulin 2.7 g/dL (1.6-3.3); Glucose 94 mg/dL (70-110); Iron 93 UG/DL (50-170); Potassium 4.6 mmol/L (3.5-5.5); Sodium 143 mmol/L (135-145); T4, Free (Free Thyroxine) 1.08 ng/dL (0.80-1.80); Total Bilirubin 0.3 mg/dL (0.3-1.2); VLDL Calculation 18.06 mg/dL (5.00-40.00)
[2023-08-01 13:51] LABS: NT-Pro-B-Type Natriuretic Pept <36 pg/mL (0-125)
== END | disposition home or self-care (01) ==
LOC: LABWHC1 09:55
PROVIDERS: ATTEND Nurse Practitioner Family
DX: Z00.00 Encounter for general adult medical examination without abnormal findings (principal); D50.9 Iron deficiency anemia, unspecified; R60.0 Localized edema
CPT/HCPCS: 36415; 80053; 80061; 83540; 83880; 84439; 84443; 84481; 85025

== ENCOUNTER → 2023-08-17 | Outpatient (CLI) | payer BC ==
--- NOTE | 2023-08-19 13:45 | MM ---
Reason for Exam: Screening (asymptomatic). Last screening mammogram was performed 12 month(s) ago. Patient History: Menarche at age 19. First Full-Term at age 28. Left ovary removed at age 51. Right ovary removed at age 51. Hysterectomy at age 51. Postmenopausal. Patient has history of breast feeding. Patient used Hormonal Contraceptives for 10 years. Maternal aunt had breast cancer. Maternal aunt had breast cancer. Risk Values: Edna 5 year model risk: 1.0%. NCI Lifetime model risk: 8.9%. Prior Study Comparison: 07/31/2021 Bilateral Screening Mammogram, [facility]. 02/12/2022 Left MG 3D diag mammo w/cad LT, [facility]. 08/14/2022 Bilateral MG 3D diag mammo w/cad ARNIE, [facility]. Tissue Density: There are scattered areas of fibroglandular density. Findings: Analyzed By CAD. There is no suspicious group of microcalcifications or new suspicious mass in either breast. Overall Assessment: Negative, BI-RAD 1 Management: Screening Mammogram of both breasts in 1 year. . Patient should continue monthly self-breast exams. A clinical breast exam by your physician is recommended on an annual basis. This exam should not preclude additional follow-up of suspicious palpable abnormalities. Note on Edna scores and lifetime risk: 1. A Edna score greater than 3% is considered moderate risk. If this is the case, consider specialist referral to assess eligibility for a risk reducing agent. 2. If overall lifetime risk for the development of breast cancer is 20% or higher, the patient may qualify for future screening with alternating mammogram and breast MRI. Electronically signed and approved by: Gibran Mars M.D. Radiologis
== END | disposition home or self-care (01) ==
LOC: RADMAMWWP 16:10
PROVIDERS: ATTEND Family Medicine
DX: Z12.31 Encounter for screening mammogram for malignant neoplasm of breast (principal); Z80.3 Family history of malignant neoplasm of breast; Z78.0 Asymptomatic menopausal state
CPT/HCPCS: 77063; 77067

== ENCOUNTER → 2023-09-02 | Outpatient (CLI) | payer BC ==
--- NOTE | 2023-09-02 18:48 | CA ---
Transthoracic Echo Report Name: Gala Malone Age: 53 Gender: F : 1970 Exam Date: 09/02/2023 17:09 Exam Location: [place] [facility] Ht (in): 65 Wt (lb): 165 Ordering Physician: Mamadou Dowell DO Attending/Referring Phys: Amy Henry [facility] Communications Equipment Installer Kate Herbert, SILVANO Procedure CPT: Indications: M79.89 SWELLING LOWER LIMBS Cardiac Hx: Technical Quality: Good Contrast 1: Total Dose (mL): Contrast 2: Total Dose (mL): MEASUREMENTS (Male / Female) Normal Values 2D ECHO LV Diastolic Diameter PLAX 4.6 cm 4.2 - 5.9 / 3.9 - 5.3 cm LV Systolic Diameter PLAX 3.3 cm IVS Diastolic Thickness 0.6 cm 0.6 - 1.0 / 0.6 - 0.9 cm LVPW Diastolic Thickness 0.8 cm 0.6 - 1.0 / 0.6 - 0.9 cm LV Relative Wall Thickness 0.3 LV Diastolic Volume MOD 4C 75.3 cm??? LV Systolic Volume MOD 4C 39.3 cm??? LV Ejection Fraction MOD 4C 47.8 % LV Diastolic Length 4C 7.0 cm LV Systolic Length 4C 5.7 cm LV Diastolic Volume MOD 2C 88.3 cm??? LV Systolic Volume MOD 2C 35.3 cm??? LV Ejection Fraction MOD 2C 60.0 % LV Diastolic Length 2C 7.2 cm LV Systolic Length 2C 5.8 cm M-MODE Aortic Root Diameter MM 2.5 cm LA Systolic Diameter MM 2.6 cm LA Ao Ratio MM 1.1 DOPPLER AV Peak Velocity 135.5 cm/s AV Peak Gradient 7.3 mmHg AV Mean Gradient 4.0 mmHg AV Velocity Time Integral 28.4 cm LVOT Peak Velocity 94.7 cm/s LVOT Peak Gradient 3.6 mmHg LVOT Velocity Time Integral 18.9 cm Mitral E Point Velocity 72.7 cm/s Mitral A Point Velocity 64.1 cm/s Mitral E to A Ratio 1.1 MV Deceleration Time 203.9 ms TR Peak Velocity 155.5 cm/s TR Peak Gradient 9.7 mmHg FINDINGS Left Ventricle Left ventricular ejection fraction is estimated at 55-60 %. Normal Left ventricular size, wall thickness, systolic function with no obvious regional wall motion abnormalities. Normal Left ventricular diastolic filling pattern. Right Ventricle Right ventricle at upper limits of normal. Right ventricular systolic pressure within normal limits. Right Atrium Normal right atrial size. Left Atrium Normal left atrial size. Mitral Valve Structurally normal mitral valve. Trace to mild mitral regurgitation. Aortic Valve Trileaflet aortic valve. No aortic valve stenosis or regurgitation. Tricuspid Valve Structurally normal tricuspid valve. Trace to mild tricuspid regurgitation. Pulmonic Valve Structurally normal pulmonic valve. Trace pulmonic regurgitation. Pericardium No pericardial or pleural effusion. Aorta Normal size aortic root and proximal ascending aorta. CONCLUSIONS Normal LV systolic function Previewed by: Dr. Murali Lott MD (Electronically Signed) Final Date: 02 Sep 2023 18:47
== END | disposition home or self-care (01) ==
LOC: RADECHMAIN 17:01
PROVIDERS: ATTEND Family Medicine
DX: M79.89 Other specified soft tissue disorders (principal)
CPT/HCPCS: 93306

== ENCOUNTER → 2023-10-27 | Outpatient (CLI) | payer BC ==
--- NOTE | 2023-11-05 13:36 | MR ---
EXAMINATION TYPE: MR foot LT wo con DATE OF EXAM: 10/27/2023 COMPARISON: No radiographic correlation available HISTORY: 53-year-old female M79.9, Soft tissue mass, left mid-foot, medial aspect. TECHNIQUE: Multiplanar, multisequence images of the left foot were obtained without IV contrast. FINDINGS: Underlying the patient's medial hindfoot palpable marker, there is focal circumscribed area of fatty proliferation measuring 2.3 cm craniocaudal by 3.3 cm long by 1.6 cm wide. Some minimal internal stra ndy densities are present. No suspicious soft tissue nodularity. We note some thickening of the medial band of the plantar fascia up to 6.5 mm near the same level, be yond the calcaneal attachment. Some mild edema is present both deep and superficial to the fascia her e. No discrete tear is identified. The toes are incompletely included on the exam. Mild to moderate degenerative change first MTP joint. The tibiotalar and subtalar joints appear intact. Smooth delineation to the Achilles tendon. No acute or healing fracture is seen. There is a low muscle belly of the peroneus brevis reaching down to the level of the peroneal tubercl e. This can cause crowding and mechanical symptoms. Nonspecific patchy increased marrow signal change throughout the mid foot probably changes reactive t o altered biomechanics and less likely bone bruises in the absence of any injury. IMPRESSION: 1. A 3.3 x 2.3 x 1.6 cm area of circumscribed fatty proliferation underlying the patient's medial hin dfoot palpable marker. Consider a fatty tumor such as lipoma. Given some minimal internal strandy den sities, atypical lipomatous tumor and low-grade liposarcoma are in the differential as well. This are a should be monitored clinically to ensure stable size. If any growth is noted, surgical evaluation c an be considered. 2. Thickening at the medial band of the plantar fascia at the hindfoot up to 6.5 mm with some surroun ding edema. Correlate for plantar fascia injury or plantar fasciitis. The changes do not extend to th e calcaneal insertion. No discrete tear. 3. Incidental low muscle belly of the Proteus brevis as above. 4. Some nonspecific patchy increased marrow signal throughout the midfoot, probably changes reactive to altered biomechanics. Less likely bone bruises in the absence of any injury.
== END | disposition home or self-care (01) ==
LOC: RADMRIMAIN 10:10
PROVIDERS: ATTEND Podiatrist Foot & Ankle Surgery
DX: M79.9 Soft tissue disorder, unspecified (principal); R60.9 Edema, unspecified

== ENCOUNTER → 2024-07-12 | Outpatient (CLI) | payer BC ==
[2024-07-13 02:48] LABS: Estradiol <20.0 pg/mL
== END | disposition home or self-care (01) ==
LOC: LABWHC1 15:55
PROVIDERS: ATTEND Obstetrics & Gynecology
DX: N95.1 Menopausal and female climacteric states (principal)
CPT/HCPCS: 36415; 82670; 83001; 84144; 84402; 84403

== ENCOUNTER → 2024-08-05 | Outpatient (CLI) | payer BC ==
--- NOTE | 2024-08-05 15:07 | US ---
EXAMINATION TYPE: US venous doppler duplex LE LT DATE OF EXAM: 08/05/2024 1:17 PM COMPARISON: NONE CLINICAL INDICATION: Female, 54 years old with history of R22.42 SWELLING, MASS AND LUMP, LEFT LOWER LIMB; Left ankle swelling TECHNIQUE: The lower extremity deep venous system is examined utilizing real time linear array sonog lucina with graded compression, color doppler sonography, and spectral doppler. SIDE PERFORMED: Left FINDINGS: VESSELS IMAGED: Common Femoral Vein Deep Femoral Vein Greater Saphenous Vein * Femoral Vein Popliteal Vein Small Saphenous Vein * Proximal Calf Veins (* superficial vessels) Left Leg: Appears negative for DVT IMPRESSION: 1. Left lower extremity ultrasound negative for deep venous thrombosis [facility], , 08/05/2024 3:04 PM
== END | disposition home or self-care (01) ==
LOC: RADUSWWP 12:58
PROVIDERS: ATTEND Family Medicine
DX: R22.42 Localized swelling, mass and lump, left lower limb (principal)

== ENCOUNTER → 2024-08-06 | Outpatient (CLI) | payer BC ==
[2024-08-06 14:00] LABS: ALT 34 U/L (8-44); AST 26 U/L (13-35); Albumin/Globulin Ratio 1.74 Ratio (1.60-3.17); Alkaline Phosphatase 86 U/L (41-126); BUN/Creat Ratio 15.22 Ratio (12.00-20.00); Blood Urea Nitrogen 13.7 mg/dL (9.0-27.0); Calcium 8.7 mg/dL (8.7-10.3); Carbon Dioxide 24.8 mmol/L (21.6-31.8); Chloride 105 mmol/L (96-109); Chol/HDL Ratio 3.72 Ratio; Globulin 2.3 g/dL (1.6-3.3); Glucose 93 mg/dL (70-110); Iron 95 UG/DL (50-170); LDL Cholesterol,Calculated 99.7 mg/dL (0.0-131.0); Sodium 143 mmol/L (135-145); T4, Free (Free Thyroxine) 1.45 ng/dL (0.80-1.80); Total Bilirubin 0.4 mg/dL (0.3-1.2); Total Protein 6.3 g/dL (6.2-8.2); VLDL Calculation 15.82 mg/dL (5.00-40.00)
[2024-08-06 14:14] LABS: NT-Pro-B-Type Natriuretic Pept <36 pg/mL (0-125)
[2024-08-06 14:19] LABS: Basophils # (A) 0.05 X 10*3/uL (0.00-0.10); Basophils % (A) 1.1 %; Eosinophils # (A) 0.09 X 10*3/uL (0.04-0.35); Eosinophils % (A) 1.9 %; HCT 42.6 % (37.2-46.3); Lymphocytes # (A) 1.41 X 10*3/uL (0.90-5.00); Lymphocytes % (A) 30.1 %; MCH 29.2 pg (27.0-32.0); MCHC 32.9 g/dL (32.0-37.0); MCV 88.9 FL (80.0-97.0); Mean Platelet Volume 9.3 FL (9.5-12.2); Monocytes # (A) 0.37 X 10*3/uL (0.20-1.00); Monocytes % (A) 7.9 %; NRBC Per 100 WBC 0 X 10*3/uL (0.00-0.01); Neutrophils # (A) 2.76 X 10*3/uL (1.80-7.70); Neutrophils % (A) 58.8 %; Platelet Count 214 X 10*3/uL (140-440); RBC 4.79 X 10*6/uL (4.10-5.20); RDW 12.4 % (11.5-14.5); WBC 4.69 X 10*3/uL (4.50-10.00)
== END | disposition home or self-care (01) ==
LOC: LABWHC1 09:57
PROVIDERS: ATTEND Nurse Practitioner Family
DX: E03.9 Hypothyroidism, unspecified (principal); D50.9 Iron deficiency anemia, unspecified; R22.42 Localized swelling, mass and lump, left lower limb; R63.5 Abnormal weight gain
CPT/HCPCS: 36415; 80053; 80061; 83036; 83540; 83880; 84439; 84443; 84481; 85025

== ENCOUNTER → 2024-10-20 | Outpatient (CLI) | payer BC ==
--- NOTE | 2024-10-20 09:57 | MM ---
Reason for Exam: Screening (asymptomatic). Last mammogram was performed 1 year(s) and 2 month(s) ago. Patient History: Menarche at age 19. First Full-Term at age 28. Left ovary removed at age 51. Right ovary removed at age 51. Hysterectomy at age 51. Postmenopausal. Patient has history of breast feeding. Patient used Hormonal Contraceptives for 10 years. Risk Values: Edna 5 year model risk: 1.1%. NCI Lifetime model risk: 8.8%. Prior Study Comparison: 02/12/2022 Left MG 3D diag mammo w/cad LT, [facility]. 08/14/2022 Bilateral MG 3D diag mammo w/cad ARNIE, [facility]. 08/17/2023 Bilateral MG 3D screening mammo w/cad, [facility]. Tissue Density: There are scattered areas of fibroglandular density. Findings: Analyzed By CAD. Right breast: There is no suspicious group of microcalcifications or new suspicious mass. Left breast: There is no suspicious group of microcalcifications or new suspicious mass. Overall Assessment: Negative, BI-RAD 1 Management: Screening Mammogram of both breasts in [address] [facility] will attempt to contact patient to return for supplemental views and ultrasound if indicated. Patient should continue monthly self-breast exams. A clinical breast exam by your physician is recommended on an annual basis. This exam should not preclude additional follow-up of suspicious palpable abnormalities. Note on Edna scores and lifetime risk: 1. A Edna score greater than 3% is considered moderate risk. If this is the case, consider specialist referral to assess eligibility for a risk reducing agent. 2. If overall lifetime risk for the development of breast cancer is 20% or higher, the patient may qualify for future screening with alternating mammogram and breast MRI. [facility], , 10/20/2024 8:58 AM. Electronically signed and approved by: Dionte Huntley DO
== END | disposition home or self-care (01) ==
LOC: RADMAMWWP 08:36
PROVIDERS: ATTEND Family Medicine
DX: Z12.31 Encounter for screening mammogram for malignant neoplasm of breast (principal); R92.323 Mammographic fibroglandular density, bilateral breasts; Z78.0 Asymptomatic menopausal state; Z92.0 Personal history of contraception
CPT/HCPCS: 77063; 77067

== ENCOUNTER → 2024-10-26 | Outpatient (CLI) | payer BC ==
--- NOTE | 2024-10-26 09:44 | XR ---
EXAMINATION TYPE: XR chest 2V DATE OF EXAM: 10/26/2024 9:38 AM COMPARISON: None TECHNIQUE: XR chest 2V Frontal and lateral views of the chest. CLINICAL INDICATION:Female, 54 years old with history of R05.8 OTHER SPECIFIED COUGH; FINDINGS: Lungs/Pleura: There is no evidence of pleural effusion, focal consolidation, or pneumothorax. Pulmonary vascularity: Unremarkable. Heart/mediastinum: Cardiomediastinal silhouette is unremarkable. Musculoskeletal: No acute osseous pathology. IMPRESSION: No acute cardiopulmonary disease/process. [facility], , 10/26/2024 9:42 AM
== END | disposition home or self-care (01) ==
LOC: RADXRMAIN 09:24
PROVIDERS: ATTEND Family Medicine
DX: R05.8 Other specified cough (principal)
CPT/HCPCS: 71046